=== PATIENT | female | born 1950 | race Caucasian/White ===

== ENCOUNTER → 2016-11-15 | Outpatient (CLI) | payer MEDICARE, BC ==
--- NOTE | 2016-11-15 11:51 | RADRPT ---
PROCEDURE: XR Right hip and pelvis. CLINICAL INDICATION: Right hip pain and pelvic pain. TECHNIQUE: 3 views. Frontal pelvis. Frontal and lateral right hip. COMPARISON: None. FINDINGS: There is no fracture or dislocation. The soft tissues are normal. There are degenerative changes of the right hip with joint space narrowing, osteophytes, subarticula r sclerosis, and deformity. There are subarticular cysts. The left hip is unremarkable. There is no radiopaque foreign body. IMPRESSION: 1. Severe degenerative changes of the right hip. 2. Unremarkable left hip. RPTAT: QQ .Hi Caba MD, MD Date Time Electronically viewed and signed by .Hi Caba MD, on 11/15/2016 11:51 .R/
== END | disposition home or self-care (01) ==
LOC: HKI 10:41
PROVIDERS: ATTEND Orthopaedic Surgery
DX: M16.11 Unilateral primary osteoarthritis, right hip (principal); M25.551 Pain in right hip
CPT/HCPCS: 73502; G0463

== ENCOUNTER → 2017-05-04 | Outpatient (CLI) | payer MEDICARE, BC | END | disposition home or self-care (01) | LOC: HKI 09:07 | PROVIDERS: ATTEND Orthopaedic Surgery | DX: M25.551 Pain in right hip (principal); M16.11 Unilateral primary osteoarthritis, right hip | CPT/HCPCS: G0463 ==

== ENCOUNTER 2017-05-10 05:19 | Inpatient (IN) | payer MEDICARE, BC ==
[~2017-05-10] VITALS: Ht 152.4 cm; Wt 56.3 kg
[2017-05-10] VITALS (38 sets, daily range): BP systolic 107–145; BP diastolic 55–84; PULSE 66–104; RESP 16–18; Ht 152.4 cm; Wt 56.3 kg
[2017-05-10] MEDS ORDERED: LACTATED RINGER'S 1,000 ML IV SCH (06:00)
[2017-05-10] MEDS ORDERED: oxyCODONE (CR) 10 MG TAB [oxyCONTIN] X1 DOSE PO SCH ×2 (06:00→06:14)
[2017-05-10] MEDS ORDERED: PREGABALIN 300 MG PO X1 PO SCH ×2 (06:00→06:14)
[2017-05-10] MEDS ORDERED: traMADOL 50 MG TAB X 1 DOSE PO SCH ×2 (06:01→06:15)
[2017-05-10] MEDS ORDERED: CELECOXIB 400 MG PO X1 DOSE PO SCH ×2 (06:01→06:14)
[2017-05-10] MEDS ORDERED: CEFAZOLIN 2GM/50 ML (PMX) 50 ML X1 BEFORE INCISION IVPB SCH ×2 (06:01→06:15)
[2017-05-10] MEDS ORDERED: ONDANSETRON 4 MG IV X 1 DOSE IV SCH ×2 (06:02→06:15)
[2017-05-10] MEDS ORDERED: POLYMYXIN B 500000 UNIT INJ ONE (06:55)
[2017-05-10] MEDS ORDERED: SODIUM CL BACTERIOSTATIC 30 ML INJ ONE (06:55)
[2017-05-10] MEDS ORDERED: VANCOMYCIN 1 GM INJ ONE (06:55)
[2017-05-10] MEDS ORDERED: EPHEDrine SULFATE 50 MG/5 ML SYG ONE (07:00)
[2017-05-10] MEDS ORDERED: TRANEXAMIC ACID 570 MG in SOD CHLORIDE 0.9% 94.3 ML IV SCH (07:00)
[2017-05-10] MEDS ORDERED: BUPIVACAINE LIPOSOME/PF 266 MG/20 ML VIAL INFIL SCH (07:00)
[2017-05-10] MEDS ORDERED: EXPAREL NOTE (BUPIVICAINE LIPOSOMAL) XX SCH (07:00)
[2017-05-10] MEDS ORDERED: PAIN COCKTAIL-CEFUROXIME IRR SCH ×7 (07:00)
[2017-05-10] MEDS ORDERED: CEFAZOLIN 1 GM INJ ONE (07:12)
[2017-05-10] MEDS ORDERED: PROPOFOL 20 ML ONE (07:12)
[2017-05-10] MEDS ORDERED: NEOSTIGMINE 3 MG/3 ML SYRINGE ONE (07:12)
[2017-05-10] MEDS ORDERED: GLYCOPYRROLATE 0.4 MG INJ ONE (07:12)
[2017-05-10] MEDS ORDERED: ROCURONIUM 50 MG INJ ONE (07:12)
[2017-05-10] MEDS ORDERED: FENTAnyl 50 MCG/ML VIAL ONE ×2 (07:13→10:28)
[2017-05-10] MEDS ORDERED: DEXAMETHASONE 4 MG/ML 1 ML INJ ONE (07:13)
[2017-05-10] MEDS ORDERED: MIDAZOLAM 1 MG/ML 2 ML INJ ONE (07:13)
[2017-05-10] MEDS ORDERED: ONDANSETRON 4 MG INJ ONE (07:13)
--- NOTE | 2017-05-10 07:13 | HPN ---
Date/Time of Note Date/Time of Note DATE: 05/10/17 TIME: 07:13 Interval H&P Admission Note Pt. seen H&P reviewed: No system changes No changes from H&P on 04/25/17 by GARY Jones MD May 10, 2017 07:13
[2017-05-10] MEDS: TRANEXAMIC ACID 570 MG in SOD CHLORIDE 0.9% 100 ML IVPB SCH ×2 (07:14→09:02)
[2017-05-10] MEDS ORDERED: PROPOFOL 100 ML ONE (08:21)
[2017-05-10] MEDS ORDERED: ETOMIDATE 20 MG INJ ONE (08:21)
[2017-05-10] MEDS ORDERED: BACITRACIN 50000 UNITS INJ IRR ONE (08:37)
[2017-05-10] MEDS: LACTATED RINGER'S 1,000 ML IV SCH ×2 (09:37→16:43)
--- NOTE | 2017-05-10 09:42 | PN ---
Date/Time of Note Date/Time of Note DATE: 05/10/17 TIME: 09:41 Assessment/Plan Lines/Catheters IV Catheter Type (from Nrsg): Peripheral IV Assessment/Plan Assessment/Plan Stable in PACU, s/p right anterior HIRAM -continue Ancef -pain meds as needed -ASA/SCDs -OOB with PT -check AM labs -monitor drain -d/c pedersen in AM XR of the right hip is pending at this time Subjective 24 Hr Interval Summary Stable in PACU. Denies pain. Moving all extremities. Exam/Review of Systems Vital Signs Vitals Vital Signs Date Time Temp Pulse Resp B/P Pulse Ox O2 Delivery O2 Flow Rate FiO2 05/10/17 05:45 98.0 68 18 140/71 98 Room Air Exam Free Text/Dictation Hemovac: minimal Dressing dry Incision clean, dry, and intact without redness or drainage 5/5 Quadriceps, Tibialis Anterior, EHL, Gastroc, Soleus, Peroneals Normal sensation Palpable DT/PT, CR <2 sec No distal edema LUCAS EDUARDO PA-C May 10, 2017 09:42
--- NOTE | 2017-05-10 09:50 | OPR ---
Date/Time of Note Date/Time of Note DATE: 05/10/17 TIME: 09:47 Operative Report Procedure Description DATE: 05/10/2017 PREOPERATIVE DIAGNOSIS: Right hip osteoarthritis POSTOPERATIVE DIAGNOSIS: Right hip osteoarthritis OPERATION PERFORMED: Right anterior total hip arthroplasty SURGEON: Gary Sparks MD MILL CONTROL OPERATOR: Jose Carey PA-C COMPONENTS USED: DePuy size 48 mm Gription [place] cup, 48/32 neutral Altrex polyethylene liner, size 4 standard Actis stem, 32+1 ceramic head ANESTHESIA: Spinal plus general endotracheal intubation. ANESTHESIOLOGIST: Romel Gross M.D. ESTIMATED BLOOD LOSS: 300 cc INTRAVENOUS FLUIDS: Crystalloid 2 L. SPECIMENS: Femoral head. DRAINS: Hemovac 1 COMPLICATIONS: None. DISPOSITION: The patient tolerated the procedure well and was taken to the recovery room in stable condition. INDICATIONS: The patient is a 67-year-old woman who has developed progressively worsening pain in the right hip with radiographic evidence of severe osteoarthritis. She has failed nonsurgical means of treatment to address her pain including activity modifications, pain medications, and ambulatory assist devices. Despite these measures she has had worsening pain I felt the patient would benefit from a total hip arthroplasty through an anterior approach. The risks, benefits, and alternatives of the procedure were explained in detail to the patient. I explained the risks of the surgery to include, but not be limited to: bleeding and possible need for blood transfusion; infection; pain; stiffness; neurovascular injury with possible numbness, weakness, and/or paralysis anywhere from the hip down to the toes; fracture; instability; dislocation; leg length inequality; wear and/or loosening of the prosthesis and possible need for future revision; blood clots; pulmonary embolism; and anesthetic complications such as heart attack, stroke, GI bleed, pneumonia, and/ or . Ample time was allowed for the patient to ask questions, all of which were addressed and answered. The patient understood the risks involved and wished to proceed. Informed consent was signed prior to the procedure. PROCEDURE: The patient's right hip was initialed with a marking pen in the preoperative area to identify the correct operative site. The patient was brought to the operating room and transferred [facility] the [facility] where a spinal anesthetic was administered. The patient was then anesthetized and intubated. A Sadler catheter was placed. Both feet were placed into well padded boots which were then placed into the leg holders of the traction booms. A timeout was performed to confirm that the right side was the correct operative site. The patient was given 2 g of intravenous Ancef within one hour prior to the procedure. The operative hip was prepped and draped in the usual sterile fashion. A 10 cm oblique incision was made over the anterior aspect of the hip and carried down through subcutaneous tissue and fat with sharp dissection. The tensor fascia manisha was incised along the length of the wound. The tensor fascia muscle was retracted laterally and the sartorius medially. The anterior circumflex vessels were identified and tied off with 2-0 silk suture and coagulated with the Tissue Link airport traffic controller. The rectus femoris was elevated off the anterior capsule and an anterior capsulectomy performed. A femoral neck osteotomy was made and the head removed from the acetabulum. The acetabulum was denuded of cartilage circumferentially, as was the femoral head. Retractors were placed around the acetabulum. The remnants of the labrum and ligamentum teres were excised. I reamed the acetabulum to the medial wall and then went into an anatomic position and increased the reamer size in 2 mm increments until I got a good bite and was down to bleeding subchondral bone. The [place] cup was opened and impacted into the acetabulum and sat flush circumferentially, getting a good bite. C-arm imaging showed it had about 40 to 45 degrees of abduction and 20 degrees of anteversion. The real liner was opened and impacted into the acetabulum and sat flush circumferentially. Attention was turned towards the femur. The operative leg was carefully lowered to the floor with the leg adducted. The foot was then externally rotated to approximately 110 degrees. A posteromedial release was performed to optimize exposure. The femoral hook was placed underneath the proximal femur and the hydraulic lift was then used to elevate the femur up out of the wound. The cookie cutter osteotome was used to remove the remaining overhanging greater trochanter. The femur was then broached, going up in one size increments until it sat flush with the neck cut and a stable fit was achieved. The trial neck and head were assembled and reduced into the acetabulum. Fluoroscopic imaging showed the components to be in good position and the leg lengths and offsets to be equal. At this point, the trial was dislocated and the trial broach removed. The canal was irrigated and dried. The real stem was opened and impacted into the femur. The trunnion was irrigated and dried, and the real femoral head was impacted onto the trunnion, and reduced into the acetabulum. The soft tissues were infiltrated with a mixture of 150 mg of 0.5% Bupivacaine, 8 mg of Duramorph, 300 mcg of epinephrine, 30 mg of Toradol, 100 mcg of clonidine, 750 mg of cefuroxime and 86 mL of normal saline, followed by an injection of 266 mg of liposomal Bupivacaine. At this point the hip was irrigated with a mixture of betadine/saline and then antibiotic saline with pulsatile lavage. A Hemovac drain was placed in the deep portion of the wound and brought out the anterolateral thigh. There was good hemostasis. The tensor fascia manisha was repaired with a running #1 Vicryl. The deep fat layer was irrigated and closed with 2-0 Stratafix and the subcutaneous layer closed with 3 -0 Vicryl and the skin was closed with kemal and then sealed with Dermabond. The drain was secured with 3-0 nylon. The sponge and needle counts were correct at the end of the case. The wound was covered with an occlusive dressing. The patient was awakened, extubated, and taken to the recovery room in stable condition. GARY SPARKS MD May 10, 2017 09:50
[2017-05-10] MEDS ORDERED: HYDROmorphONE 1 MG/ML SYG IV PRN (10:00)
[2017-05-10] MEDS ORDERED: NA PHOSPHATE/BIPHOS 133 ML ENEMA PR PRN (10:00)
[2017-05-10] MEDS ORDERED: BISACODYL 10 MG SUPP PR PRN (10:00)
[2017-05-10] MEDS ORDERED: NACL 0.9% 3 ML SYG IV SCH (10:00)
[2017-05-10] MEDS ORDERED: MAGNESIUM HYDROXIDE 30ML CUP PO PRN (10:00)
[2017-05-10] MEDS ORDERED: ASPIRIN (EC) 325 MG TAB PO ONE (10:00)
[2017-05-10] MEDS ORDERED: DIPHENHYDRAMINE 25 MG CAP PO PRN (10:00)
[2017-05-10] MEDS: CEFAZOLIN 2 GM/50 ML (PMX) 50 ML IVPB SCH ×2 (10:09→18:46)
[2017-05-10 10:30] LABS: HEMATOCRIT 34.7 % (37.0-47.0); HEMOGLOBIN 11.3 g/dl (12.0-16.0)
[2017-05-10 10:48] LABS: CALCIUM 8.8 mg/dl (8.4-10.2); CREATININE 0.58 mg/dl (0.44-1.00)
[2017-05-10] MEDS ORDERED: FENTAnyl 50 MCG/ML VIAL IV PRN ×4 (11:00→11:30)
--- NOTE | 2017-05-10 11:05 | RADRPT ---
PROCEDURE: X-ray fluoroscopy guidance CLINICAL INDICATION: RT HIP REPL. RM 7 O.R. TECHNIQUE: Fluoroscopic guidance was utilized for intraoperative procedure. COMPARISON: None. FINDINGS: Fluoroscopic guidance was utilized for intraoperative procedure. 0.5 minutes of fluoroscopy time wa s utilized for the procedure. 16 x-ray images were obtained during the procedure. There has been interval placement of a total right hip prosthesis in near anatomic alignment without evidence of hardware loosening. IMPRESSION: X-ray fluoroscopic guidance utilized for intraoperative procedure. Total right hip prosthesis in near anatomic alignment. Please see procedure note details. RPTAT: EE Physician Liborio Date Time Electronically viewed and signed by Physician Liborio on 05/10/2017 10:21 /
--- NOTE | 2017-05-10 11:06 | RADRPT ---
PROCEDURE: Pelvis x-ray CLINICAL INDICATION: Pain TECHNIQUE: Single AP view of the pelvis performed. COMPARISON: Plain radiographs of the pelvis and right hip from 11/15/2016 FINDINGS: There is decreased osseous mineralization. No fracture or osseous lesion identified. There has been interval placement of a total right hip prosthesis in near anatomic alignment without evidence of hardware loosening. Likely postoperative changes are noted including surrounding an intra-articular emphysema and a surg ical drain. There is stable mild narrowing of the left hip joint. RPTAT: AA IMPRESSION: Interval placement of a total right hip prosthesis in near anatomic alignment with likely postoperat rishi changes. Decreased osseous mineralization. Physician Liborio Date Time Electronically viewed and signed by Physician Liborio on 05/10/2017 10:32 /
[2017-05-10] MEDS: HYDROmorphONE (0.2 MG/ML) 10ML SYG IV PRN ×4 (11:15→12:02)
[2017-05-10] MEDS ORDERED: EPHEDrine SULFATE 50 MG/5 ML SYG IV PRN (11:30)
[2017-05-10] MEDS ORDERED: MEPERIDINE 25 MG INJ IV PRN (11:30)
[2017-05-10] MEDS ORDERED: ONDANSETRON 4 MG INJ IV PRN (11:30)
[2017-05-10] MEDS ORDERED: TRIMETHOBENZAMIDE 100 MG/ML VIAL IM PRN (11:30)
[2017-05-10] MEDS ORDERED: ALPRAZOLAM 0.25 MG TAB PO PRN ×2 (11:30)
[2017-05-10] MEDS ORDERED: ALBUTEROL 0.083% (NEB) 2.5 MG/3 ML AMP HHN PRN (11:30)
[2017-05-10] MEDS ORDERED: LABETALOL HCL 20MG INJ IV PRN (11:30)
[2017-05-10] MEDS ORDERED: hydrALAzine 20 MG INJ IV PRN (11:30)
[2017-05-10] MEDS ORDERED: HYDROmorphONE (0.2 MG/ML) 10ML SYG IV PRN ×3 (11:30)
[2017-05-10] MEDS ORDERED: DIPHENHYDRAMINE 50 MG INJ IV PRN (11:30)
[2017-05-10] MEDS ORDERED: MIDAZOLAM 1 MG/ML 2 ML INJ IV PRN (11:30)
[2017-05-10] MEDS ORDERED: IPRATROPIUM (NEB) 0.5 MG/2.5 ML AMP HHN PRN (11:30)
[2017-05-10] MEDS ORDERED: OXYCODONE/ACETAMINOPHEN (5/325) TAB PO PRN ×2 (11:30)
[2017-05-10] MEDS: traMADol 50 MG TAB PO SCH ×2 (12:00→17:41)
[2017-05-10] MEDS ORDERED: SOD CHLORIDE 0.9% IVPB ONE ×2 (13:00→16:00)
[2017-05-10] MEDS ORDERED: TRANEXAMIC ACID IVPB ONE ×2 (13:00→16:00)
--- NOTE | 2017-05-10 13:11 | CONS ---
DATE OF ADMISSION: 05/10/2017 DATE OF CONSULTATION: 05/10/2017 REFERRING PHYSICIAN: Dr. Barrow. Thank you very much for allowing me to evaluate the above patient, a 67-year-old female, who just underwent right anterior hip arthroplasty. HISTORICAL EVENTS: As you well know, this patient has had progressive disabling pain involving her right hip and elected to proceed with surgical intervention. Postoperatively in recovery, she denies cough, wheezing, shortness of breath, nausea, vomiting, abdominal or chest pain. PAST MEDICAL HISTORY: Includes depression, osteoporosis, history of constipation, and anxiety. MEDICATION: Omeprazole 20 mg per day, Xanax 0.25 each day p.r.n., Lexapro 10 per day, ibuprofen 800 mg b.i.d. SOCIAL HISTORY: She does not smoke. Owns a hair salon. Rarely drinks alcohol. FAMILY HISTORY: Positive for coronary disease. ALLERGIES: INCLUDE FOSAMAX. PHYSICAL EXAMINATION: GENERAL APPEARANCE: Deputy female in no acute distress. VITAL SIGNS: BP 122/80, pulse 80, respirations were 20. She was afebrile. HEENT: Eyes: Extraocular muscles were full. Nose, mouth, and throat were normal. NECK: Supple. There was no jugular venous distention, thyroid enlargement, or adenopathy. Carotids 2+. LUNGS: Lungs were clear. HEART: Rhythm is regular. No murmur. No 3rd or 4th sound. ABDOMEN: Nontender. Liver and spleen were not palpable. No mass or tenderness were noted. EXTREMITIES: No edema. No calf tenderness. NEUROLOGIC: No lateralizing motor weakness. IMPRESSION: 1. Stable postop right hip. 2. History of anxiety. Will resume Lexapro and Xanax. 3. Will evaluate daily for signs and symptoms of thromboembolic disease despite appropriate DVT prophylaxis. The past medical history indicate no history of diabetes, coronary disease, stroke or phlebitis. Dictated By: Roni Walden MD /jadon/[email or web address] /Document#: [id number]
--- NOTE | 2017-05-10 14:54 | PDOCDIS ---
Discharge Instructions DIAGNOSIS Discharge Diagnosis s/p right anterior HIRAM CONDITION Patient Condition: Good HOME CARE INSTRUCTIONS: Diet Instructions: Regular ACTIVITY: Activity Restrictions: Slowly Increase Activity Rest between Activity Avoid heavy lifting Do not operate Machinery Do not operate Power Tool Avoid Heavy Housework Keep Limb Elevated Weight Bearing FOLLOW UP/APPOINTMENTS Follow-up Plan follow up in the office on 05/21/17 LUCAS EDUARDO PA-C May 10, 2017 14:54
[2017-05-10] MEDS ORDERED: HYDR-3498 PO (14:56)
[2017-05-10] MEDS ORDERED: PANT40TA4 PO (14:56)
[2017-05-10] MEDS ORDERED: ASPI325T32 PO (14:56)
[2017-05-10] MEDS ORDERED: TRAM50TA2 PO (14:56)
[2017-05-10] MEDS ORDERED: BACITRACIN 50000 UNITS INJ ONE (15:18)
[2017-05-10] MEDS: PANTOPRAZOLE (EC) 40 MG TAB PO SCH (17:41)
[2017-05-10] MEDS: ESCITALOPRAM 10 MG TAB PO SCH (18:56)
[2017-05-10] MEDS: DOCUSATE SODIUM 100 MG CAP PO SCH (21:00)
[2017-05-11] MEDS: HYDROCODONE/APAP (5/325) TAB PO PRN ×2 (00:30→12:09)
[2017-05-11] MEDS: LACTATED RINGER'S 1,000 ML IV SCH ×3 (03:18→15:13)
[2017-05-11] MEDS: CEFAZOLIN 2 GM/50 ML (PMX) 50 ML IVPB SCH (03:18)
[2017-05-11 05:11] LABS: HEMATOCRIT 26.7 % (37.0-47.0); HEMOGLOBIN 8.9 g/dl (12.0-16.0)
[2017-05-11 05:36] LABS: CREATININE 0.52 mg/dl (0.44-1.00); POTASSIUM 4.2 mmol/L (3.5-5.1)
[2017-05-11] MEDS ORDERED: PANTOPRAZOLE (EC) 40 MG TAB PO SCH (06:00)
[2017-05-11] MEDS: traMADol 50 MG TAB PO SCH ×4 (06:00→17:33)
[2017-05-11] MEDS: PANTOPRAZOLE (EC) 40 MG TAB PO SCH ×2 (06:45→17:33)
[2017-05-11 07:45] VITALS: BP 109/54; RESP 18
[2017-05-11] MEDS: DOCUSATE SODIUM 100 MG CAP PO SCH ×2 (08:20→22:15)
[2017-05-11] MEDS: ASPIRIN (EC) 325 MG TAB PO SCH ×2 (08:21→22:15)
[2017-05-11] MEDS: ESCITALOPRAM 10 MG TAB PO SCH (08:21)
[2017-05-11] MEDS: POLYETHYLENE GLYCOL 17 GM PACKET PO SCH (08:21)
--- NOTE | 2017-05-11 09:01 | PN ---
Date/Time of Note Date/Time of Note DATE: 05/11/17 TIME: 08:59 Assessment/Plan Lines/Catheters IV Catheter Type (from Nrsg): Peripheral IV Sadler in Place (from Nrsg): Yes Assessment/Plan Assessment/Plan Stable, POD #1, s/p right anterior HIRAM -dc abx -pain meds as needed -ASA/SCDs -OOB with PT -drain removed -check AM plans -d/c planning for home Subjective 24 Hr Interval Summary No acute overnight events. Denies significant pain. Progressing well with PT. VSS, afebrile. H&H low but will monitor for now. Will plan to go home upon discharge. Exam/Review of Systems Vital Signs Vitals Vital Signs Date Time Temp Pulse Resp B/P Pulse Ox O2 Delivery O2 Flow Rate FiO2 05/11/17 14:20 98.2 80 18 117/55 90 05/10/17 20:45 Nasal Cannula 2.0 Intake and Output 05/10/17 05/10/17 05/11/17 15:00 23:00 07:00 Intake Total 2817.0 ml 1250 ml 2530 ml Output Total 1600 ml 590 ml 2100 ml Balance 1217.0 ml 660 ml 430 ml Exam Free Text/Dictation Hemovac: 140cc Dressing dry Incision clean, dry, and intact without redness or drainage 5/5 Quadriceps, Tibialis Anterior, EHL, Gastroc, Soleus, Peroneals Normal sensation Palpable DT/PT, CR <2 sec No distal edema Results Result Diagram: 05/11/17 0423 05/11/17 0423 LUCAS EDUARDO PA-C May 11, 2017 09:01
--- NOTE | 2017-05-11 09:05 | CONS ---
Date/Time of Note Date/Time of Note DATE: 05/11/17 TIME: 09:00 Assessment/Plan Assessment/Plan Chief Complaint/Hosp Course 1. She is 1 day postop a right total hip arthroplasty. She is doing well. She will continue current medication and physical therapy protocol. 2. Her hemoglobin and hematocrit are lower than yesterday. Will recheck tomorrow. Problems: Consultation Date/Type/Reason Admit Date/Time May 10, 2017 at 05:19 Initial Consult Date 24 HR Interval Summary Free Text/Dictation She is 1 day postop a right total hip replacement. She is feeling better. She is hungry and is starting to eat breakfast. Constitutional: improved, no complaints Exam/Review of Systems Vital Signs Vitals Vital Signs Date Time Temp Pulse Resp B/P Pulse Ox O2 Delivery O2 Flow Rate FiO2 05/11/17 07:45 98.0 91 18 109/54 100 05/10/17 20:45 Nasal Cannula 2.0 Intake and Output 05/10/17 05/10/17 05/11/17 15:00 23:00 07:00 Intake Total 2817.0 ml 1250 ml 2530 ml Output Total 1600 ml 590 ml 2100 ml Balance 1217.0 ml 660 ml 430 ml Exam Constitutional: alert, oriented, well developed Respiratory: clear to auscultation, normal air movement Cardiovascular: regular rate and rhythm Gastrointestinal: nl liver, spleen, non-tender, soft Musculoskeletal: nl extremities to inspection Results Result Diagram: 05/11/17 0423 05/11/17 0423 Results 24 hrs Laboratory Tests Test 05/10/17 10:02 05/11/17 04:23 Hemoglobin 11.3 L 8.9 #L Hematocrit 34.7 L 26.7 #L Sodium Level 141 137 Potassium Level 4.0 4.2 Chloride Level 108 98 # Carbon Dioxide Level 25 29 Anion Gap 12 14 Blood Urea Nitrogen 9 6 L Creatinine 0.58 0.52 Glucose Level 158 101 # Calcium Level 8.8 8.0 L Medications Medications Current Medications Miscellaneous Information 1 ea 1 ea NOTE XX ; Start 05/10/17 at 07:00; Stop at 07:01 Lactated Ringer's (Lr) 1,000 ml @ 125 mls/hr Q8H IV Last administered on t 03:18; Admin Dose 125 MLS/HR; Start 05/10/17 at 09:37 Tramadol HCl (Ultram) 50 mg Q6 PO Last administered on 05/10/17 17:41; Admin Dose 50 MG; Start 05/10/17 at 12:00; Stop 05/13/17 at 11:59 Acetaminophen/ Hydrocodone Bitart ([place] (5/325)) 1 tab Q4H PRN PO PAIN LEVEL 1 -3; Start 05/10/17 at 10:00 Acetaminophen/ Hydrocodone Bitart ([place] (5/325)) 2 tab Q4H PRN PO PAIN LEVEL 4 -7 Last administered on 05/11/17 00:30; Admin Dose 2 TAB; Start 05/10/17 at 10: 00 Hydromorphone HCl (Dilaudid) 1 mg Q3H PRN IV PAIN LEVEL 8-10 Last administered on 05/11/17 06:42; Admin Dose 1 MG; Start 05/10/17 at 10:00 Ondansetron HCl (Zofran Inj) 4 mg Q6H PRN IV NAUSEA AND/OR VOMITING; Start at 10:00 Bisacodyl (Dulcolax Supp) 10 mg Q12H PRN DC CONSTIPATION; Start 05/10/17 at 10: 00 Magnesium Hydroxide (Milk Of Mag) 30 ml BID PRN PO CONSTIPATION; Start at 10:00 Sodium Biphosphate/ Sodium Phosphate (Fleet Enema) 133 ml DAILY PRN DC CONSTIPATION; Start 05/10/17 at 10:00 Docusate Sodium (Colace) 100 mg BID PO Last administered on 05/11/17 08:20; Admin Dose 100 MG; Start 05/10/17 at 21:00 Diphenhydramine HCl (Benadryl) 25 mg Q6H PRN PO PRURITUS; Start 05/10/17 at 10: 00 Aspirin (Ecotrin) 325 mg BID PO Last administered on 05/11/17 08:21; Admin Dose 325 MG; Start 05/11/17 at 09:00 Pantoprazole (Protonix Tab) 40 mg BID@18 PO Last administered on 05/11/17 06:45; Admin Dose 40 MG; Start 05/10/17 at 18:00 Polyethylene Glycol (Miralax) 17 gm DAILY PO Last administered on 05/11/17 08: 21; Admin Dose 17 GM; Start 05/11/17 at 09:00 Escitalopram Oxalate (Lexapro) 10 mg DAILY PO Last administered on 05/11/17 08 :21; Admin Dose 10 MG; Start 05/10/17 at 13:00 Alprazolam (Xanax) 0.25 mg HS PRN PO SLEEP; Start 05/10/17 at 11:30 Alprazolam (Xanax) 0.25 mg BID PRN PO ANXIETY; Start 05/10/17 at 11:30 BURT RODRIGUEZ MD May 11, 2017 09:05
[2017-05-11 09:24] LABS: ADD UMIC NO; UR ASCORBIC ACID NEGATIVE (NEGATIVE); UR BILIRUBIN (Dip) NEGATIVE (NEGATIVE); UR BLOOD (Dip) NEGATIVE (NEGATIVE); UR CLARITY CLEAR (CLEAR); UR COLOR STRAW (YELLOW); UR GLUCOSE (Dip) NEGATIVE (NEGATIVE); UR KETONES (Dip) NEGATIVE (NEGATIVE); UR LEUKOCYTE ESTERASE (Dip) NEGATIVE Leu/ul (NEGATIVE); UR NITRITE (Dip) NEGATIVE (NEGATIVE); UR TOTAL PROTEIN (Dip) NEGATIVE (NEGATIVE); UR UROBILINOGEN (Dip) NEGATIVE (NEGATIVE)
[2017-05-11] MEDS: ONDANSETRON 4 MG INJ IV PRN ×2 (12:09→17:31)
[2017-05-11 14:20] VITALS: BP 117/55; RESP 18
[2017-05-11 19:20] VITALS: BP 123/58; RESP 22
[2017-05-12] MEDS: traMADol 50 MG TAB PO SCH ×4 (01:19→17:38)
[2017-05-12] MEDS: LACTATED RINGER'S 1,000 ML IV SCH ×3 (01:37→16:33)
[2017-05-12 05:14] LABS: HEMATOCRIT 27.4 % (37.0-47.0)
[2017-05-12 05:45] LABS: CALCIUM 8.3 mg/dl (8.4-10.2); CREATININE 0.55 mg/dl (0.44-1.00); POTASSIUM 4.1 mmol/L (3.5-5.1)
[2017-05-12] MEDS: PANTOPRAZOLE (EC) 40 MG TAB PO SCH ×2 (06:00→17:37)
[2017-05-12 08:15] VITALS: BP 117/60; RESP 17
[2017-05-12] MEDS: ASPIRIN (EC) 325 MG TAB PO SCH ×2 (08:39→20:38)
[2017-05-12] MEDS: ESCITALOPRAM 10 MG TAB PO SCH (08:39)
[2017-05-12] MEDS: DOCUSATE SODIUM 100 MG CAP PO SCH ×2 (08:39→20:38)
[2017-05-12] MEDS: POLYETHYLENE GLYCOL 17 GM PACKET PO SCH (08:40)
--- NOTE | 2017-05-12 11:06 | PN ---
Date/Time of Note Date/Time of Note DATE: 05/12/17 TIME: 11:05 Assessment/Plan Lines/Catheters IV Catheter Type (from Nrsg): Saline Lock Sadler in Place (from Nrsg): No Assessment/Plan Assessment/Plan Stable, POD #2, s/p right anterior HIRAM -pain meds as needed -ASA/SCDs -OOB with PT -check AM labs -dressing changed -plan to d/c home tomorrow Subjective 24 Hr Interval Summary No acute overnight events. Having mild pain. Progressing with PT. VSS, afebrile. Will plan to go home tomorrow. Exam/Review of Systems Vital Signs Vitals Vital Signs Date Time Temp Pulse Resp B/P Pulse Ox O2 Delivery O2 Flow Rate FiO2 05/12/17 08:15 97.9 78 17 117/60 96 05/10/17 20:45 Nasal Cannula 2.0 Intake and Output 05/11/17 05/11/17 05/12/17 15:00 23:00 07:00 Intake Total 655.6 ml 960 ml 350 ml Output Total 1100 ml Balance 655.6 ml -140 ml 350 ml Exam Free Text/Dictation Dressing dry Incision clean, dry, and intact without redness or drainage 5/5 Quadriceps, Tibialis Anterior, EHL, Gastroc, Soleus, Peroneals Normal sensation Palpable DT/PT, CR <2 sec No distal edema Results Result Diagram: 05/12/17 0446 05/12/17 0446 LUCAS EDUARDO PA-C May 12, 2017 11:06
--- NOTE | 2017-05-12 13:14 | CONS ---
Date/Time of Note Date/Time of Note DATE: 05/12/17 TIME: 13:12 Assessment/Plan Assessment/Plan Chief Complaint/Hosp Course 1. She is 2 days postop a right total hip arthroplasty. She is doing well. She will continue current medication and physical therapy protocol. 2. Her hemoglobin and hematocrit are higher today. Problems: Consultation Date/Type/Reason Admit Date/Time May 10, 2017 at 05:19 24 HR Interval Summary Free Text/Dictation She is now 2 days postop a right total hip replacement. She is up walking with a walker. She is feeling much better today. Constitutional: improved, no complaints Exam/Review of Systems Vital Signs Vitals Vital Signs Date Time Temp Pulse Resp B/P Pulse Ox O2 Delivery O2 Flow Rate FiO2 05/12/17 08:15 97.9 78 17 117/60 96 05/10/17 20:45 Nasal Cannula 2.0 Intake and Output 05/11/17 05/11/17 05/12/17 15:00 23:00 07:00 Intake Total 655.6 ml 960 ml 350 ml Output Total 1100 ml Balance 655.6 ml -140 ml 350 ml Exam Constitutional: alert, oriented, well developed Respiratory: clear to auscultation, normal air movement Cardiovascular: regular rate and rhythm Musculoskeletal: nl extremities to inspection Results Result Diagram: 05/12/17 0446 05/12/17 0446 Results 24 hrs Laboratory Tests Test 05/12/17 04:46 Hemoglobin 9.0 L Hematocrit 27.4 L Sodium Level 129 L Potassium Level 4.1 Chloride Level 90 L Carbon Dioxide Level 28 Anion Gap 15 Blood Urea Nitrogen 6 L Creatinine 0.55 Glucose Level 94 Calcium Level 8.3 L Medications Medications Current Medications Miscellaneous Information 1 ea 1 ea NOTE XX ; Start 05/10/17 at 07:00; Stop at 07:01 Lactated Ringer's (Lr) 1,000 ml @ 125 mls/hr Q8H IV Last administered on 03:18; Admin Dose 125 MLS/HR; Start 05/10/17 at 09:37 Tramadol HCl (Ultram) 50 mg Q6 PO Last administered on 05/12/17 09:24; Admin Dose 50 MG; Start 05/10/17 at 12:00; Stop 05/13/17 at 11:59 Acetaminophen/ Hydrocodone Bitart ([place] (5/325)) 1 tab Q4H PRN PO PAIN LEVEL 1 -3; Start 05/10/17 at 10:00 Acetaminophen/ Hydrocodone Bitart ([place] (5/325)) 2 tab Q4H PRN PO PAIN LEVEL 4 -7 Last administered on 05/11/17 12:09; Admin Dose 2 TAB; Start 05/10/17 at 10: 00 Hydromorphone HCl (Dilaudid) 1 mg Q3H PRN IV PAIN LEVEL 8-10 Last administered on 05/11/17 06:42; Admin Dose 1 MG; Start 05/10/17 at 10:00 Ondansetron HCl (Zofran Inj) 4 mg Q6H PRN IV NAUSEA AND/OR VOMITING Last administered on 05/11/17 17:31; Admin Dose 4 MG; Start 05/10/17 at 10:00 Bisacodyl (Dulcolax Supp) 10 mg Q12H PRN [place] CONSTIPATION; Start 05/10/17 at 10: 00 Magnesium Hydroxide (Milk Of Mag) 30 ml BID PRN PO CONSTIPATION; Start at 10:00 Sodium Biphosphate/ Sodium Phosphate (Fleet Enema) 133 ml DAILY PRN NE CONSTIPATION; Start 05/10/17 at 10:00 Docusate Sodium (Colace) 100 mg BID PO Last administered on 05/12/17 08:39; Admin Dose 100 MG; Start 05/10/17 at 21:00 Diphenhydramine HCl (Benadryl) 25 mg Q6H PRN PO PRURITUS; Start 05/10/17 at 10: 00 Aspirin (Ecotrin) 325 mg BID PO Last administered on 05/12/17 08:39; Admin Dose 325 MG; Start 05/11/17 at 09:00 Pantoprazole (Protonix Tab) 40 mg BID@ PO Last administered on 05/11/17 17:33; Admin Dose 40 MG; Start 05/10/17 at 18:00 Polyethylene Glycol (Miralax) 17 gm DAILY PO Last administered on 05/11/17 08: 21; Admin Dose 17 GM; Start 05/11/17 at 09:00 Escitalopram Oxalate (Lexapro) 10 mg DAILY PO Last administered on 05/12/17 08 :39; Admin Dose 10 MG; Start 05/10/17 at 13:00 Alprazolam (Xanax) 0.25 mg HS PRN PO SLEEP; Start 05/10/17 at 11:30 Alprazolam (Xanax) 0.25 mg BID PRN PO ANXIETY; Start 05/10/17 at 11:30 BURT RODRIGUEZ MD May 12, 2017 13:14
[2017-05-12 14:00] VITALS: BP 106/66; RESP 18
[2017-05-12] MEDS: HYDROCODONE/APAP (5/325) TAB PO PRN ×2 (14:27→19:29)
[2017-05-12 19:45] VITALS: BP 104/56; RESP 18
[2017-05-13] MEDS: LACTATED RINGER'S 1,000 ML IV SCH ×2 (01:37→13:22)
[2017-05-13 02:13] VITALS: BP 114/63; RESP 18
[2017-05-13] MEDS: traMADol 50 MG TAB PO SCH ×2 (05:43)
[2017-05-13] MEDS: PANTOPRAZOLE (EC) 40 MG TAB PO SCH (05:43)
[2017-05-13 07:05] LABS: HEMATOCRIT 28.1 % (37.0-47.0); HEMOGLOBIN 9.1 g/dl (12.0-16.0)
[2017-05-13 07:38] LABS: CALCIUM 8.5 mg/dl (8.4-10.2); CREATININE 0.57 mg/dl (0.44-1.00)
[2017-05-13 08:38] VITALS: BP 118/64; RESP 18
[2017-05-13] MEDS: ESCITALOPRAM 10 MG TAB PO SCH (09:04)
[2017-05-13] MEDS: POLYETHYLENE GLYCOL 17 GM PACKET PO SCH (09:04)
[2017-05-13] MEDS: DOCUSATE SODIUM 100 MG CAP PO SCH (09:04)
[2017-05-13] MEDS: ASPIRIN (EC) 325 MG TAB PO SCH (09:04)
--- NOTE | 2017-05-13 12:38 | CONS ---
Date/Time of Note Date/Time of Note DATE: 05/13/17 TIME: 12:34 Assessment/Plan Assessment/Plan Chief Complaint/Hosp Course 1. She is 3 days postop a right total hip arthroplasty. She is doing well. She will continue current medication and physical therapy protocol. She can be discharged today . 2. Her hemoglobin and hematocrit are higher today. Problems: Consultation Date/Type/Reason Admit Date/Time May 10, 2017 at 05:19 24 HR Interval Summary Free Text/Dictation She is doing well . No complaints . Constitutional: improved, no complaints Exam/Review of Systems Vital Signs Vitals Vital Signs Date Time Temp Pulse Resp B/P Pulse Ox O2 Delivery O2 Flow Rate FiO2 05/13/17 08:38 97.9 76 18 118/64 98 05/10/17 20:45 Nasal Cannula 2.0 Intake and Output 05/12/17 05/12/17 05/13/17 15:00 23:00 07:00 Intake Total 1200 ml 1900 ml Balance 1200 ml 1900 ml Exam Constitutional: alert, oriented, well developed Respiratory: clear to auscultation, normal air movement Cardiovascular: nl pulses, regular rate and rhythm Gastrointestinal: soft Musculoskeletal: nl extremities to inspection Results Result Diagram: 05/13/17 0458 05/13/17 0458 Results 24 hrs Laboratory Tests Test 05/13/17 04:58 Hemoglobin 9.1 L Hematocrit 28.1 L Sodium Level 136 Potassium Level 4.0 Chloride Level 101 # Carbon Dioxide Level 28 Anion Gap 11 Blood Urea Nitrogen 6 L Creatinine 0.57 Glucose Level 77 Calcium Level 8.5 Medications Medications Current Medications Lactated Ringer's (Lr) 1,000 ml @ 125 mls/hr Q8H IV Last administered on 03:18; Admin Dose 125 MLS/HR; Start 05/10/17 at 09:37 Acetaminophen/ Hydrocodone Bitart ([place] (5/325)) 1 tab Q4H PRN PO PAIN LEVEL 1 -3 Last administered on 05/12/17 19:29; Admin Dose 1 TAB; Start 05/10/17 at 10: 00 Acetaminophen/ Hydrocodone Bitart ([place] (5/325)) 2 tab Q4H PRN PO PAIN LEVEL 4 -7 Last administered on 05/11/17 12:09; Admin Dose 2 TAB; Start 05/10/17 at 10: 00 Hydromorphone HCl (Dilaudid) 1 mg Q3H PRN IV PAIN LEVEL 8-10 Last administered on 05/11/17 06:42; Admin Dose 1 MG; Start 05/10/17 at 10:00 Ondansetron HCl (Zofran Inj) 4 mg Q6H PRN IV NAUSEA AND/OR VOMITING Last administered on 05/11/17 17:31; Admin Dose 4 MG; Start 05/10/17 at 10:00 Bisacodyl (Dulcolax Supp) 10 mg Q12H PRN OR CONSTIPATION; Start 05/10/17 at 10: 00 Magnesium Hydroxide (Milk Of Mag) 30 ml BID PRN PO CONSTIPATION; Start at 10:00 Sodium Biphosphate/ Sodium Phosphate (Fleet Enema) 133 ml DAILY PRN OR CONSTIPATION Last administered on 05/13/17 05:47; Admin Dose 133 ML; Start at 10:00 Docusate Sodium (Colace) 100 mg BID PO Last administered on 05/13/17 09:04; Admin Dose 100 MG; Start 05/10/17 at 21:00 Diphenhydramine HCl (Benadryl) 25 mg Q6H PRN PO PRURITUS; Start 05/10/17 at 10: 00 Aspirin (Ecotrin) 325 mg BID PO Last administered on 05/13/17 09:04; Admin Dose 325 MG; Start 05/11/17 at 09:00 Pantoprazole (Protonix Tab) 40 mg BID@,18 PO Last administered on 05/13/17 05:43; Admin Dose 40 MG; Start 05/10/17 at 18:00 Polyethylene Glycol (Miralax) 17 gm DAILY PO Last administered on 05/13/17 09: 04; Admin Dose 17 GM; Start 05/11/17 at 09:00 Escitalopram Oxalate (Lexapro) 10 mg DAILY PO Last administered on 05/13/17 09 :04; Admin Dose 10 MG; Start 05/10/17 at 13:00 Alprazolam (Xanax) 0.25 mg HS PRN PO SLEEP; Start 05/10/17 at 11:30 Alprazolam (Xanax) 0.25 mg BID PRN PO ANXIETY; Start 05/10/17 at 11:30 BURT RODRIGUEZ MD May 13, 2017 12:38
[2017-05-13] MEDS: HYDROCODONE/APAP (5/325) TAB PO PRN (13:21)
--- NOTE | 2017-05-13 15:19 | PN ---
Date/Time of Note Date/Time of Note DATE: 05/13/17 TIME: 15:18 Assessment/Plan Lines/Catheters IV Catheter Type (from Nrsg): Saline Lock Sadler in Place (from Nrsg): No Assessment/Plan Assessment/Plan POD # 3. Stable. -D/C to home -Pain meds -Home PT -ASA/SCDs -F/u with me in 1 week Subjective 24 Hr Interval Summary Eager to go home. Minimal pain. Exam/Review of Systems Vital Signs Vitals Vital Signs Date Time Temp Pulse Resp B/P Pulse Ox O2 Delivery O2 Flow Rate FiO2 05/13/17 08:38 97.9 76 18 118/64 98 05/10/17 20:45 Nasal Cannula 2.0 Intake and Output 05/12/17 05/12/17 05/13/17 15:00 23:00 07:00 Intake Total 1200 ml 1900 ml Balance 1200 ml 1900 ml Exam Free Text/Dictation Dressing dry Incision clean, dry, and intact without redness or drainage Thigh soft 5/5 Quadriceps, Tibialis Anterior, EHL, Gastroc Soleus, Peroneals Normal sensation Palpable DP/PT, CR < 2 Sec No distal edema Results Result Diagram: 05/13/17 0458 05/13/17 0458 GARY SPARKS MD May 13, 2017 15:19
--- NOTE | 2017-05-14 08:11 | DS ---
Date/Time of Note Date/Time of Note DATE: 05/14/17 TIME: 08:08 Discharge Summary Admission/Discharge Info Admit Date/Time May 10, 2017 at 05:19 Discharge Date/Time May 13, 2017 at 16:10 Discharge Diagnosis s/p right anterior HIRAM Patient Condition: Good Procedures Right anterior total hip arthroplasty Hospital Course This is a 59-year-old female, who was seen in the clinic initially complaining of right hip pain. X-rays demonstrated advanced osteoarthritis of the right hip , and was thought she would benefit from right anterior total hip arthroplasty. On 05/10/2017, the patient was admitted and taken to the operating room, where she underwent a right anterior total hip arthroplasty. There were no intraoperative complications. The patient tolerated procedure well. She was taken to recovery room in stable condition. Pain was well-controlled oral pain medication. She was started on aspirin and SCDs for DVT prophylaxis. She remained hemodynamically stable and neurovascularly intact throughout her hospital stay. She began physical therapy on postoperative day 0, continue to make a progress. Ultimately she was deemed able to discharge home on postoperative day 3. Prior to discharge, the incision was inspected and noted to be clean, dry, and intact. Dressing changes were done prior to patient going home. Discharge Instructions: The patient will be discharged home in stable condition. She is to resume a normal diet. She is weightbearing as tolerated on the right lower extremity. She will begin physical therapy with home health. She will be discharged home on the medication noted and is to resume all of her normal home medication. The patient is to call the office or go to emergency room for any concerns including increased redness, swelling, drainage , fever, or any concerns regarding the operation or site of incision. Home Meds Active Scripts Pantoprazole* (Pantoprazole*) 40 Mg Tablet., 40 MG PO BID@06,18 for 40 Days, # 40 Prov:LUCAS EDUARDO PA-C 05/10/17 Tramadol HCl (Tramadol HCl) 50 Mg Tablet, 50 MG PO Q6 for 30 Days, #60 TAB Prov:LUCAS EDUARDO PA-C 05/10/17 Hydrocodone Bit-Acetaminophen (Hydrocodone Bit-APAP) 5-325MG Tablet, 1 TAB PO Q4H Y for PAIN LEVEL 1-3 for 30 Days, #60 TAB Prov:LUCAS EDUARDO PA-C 05/10/17 Aspirin (Aspir-Rachel) 325 Mg Tablet., 325 MG PO BID for 40 Days, #80 Prov:LUCAS EDUARDO PA-C 05/10/17 Follow-up Plan Follow-up in the office on 05/23/2017 Primary Care Provider Not On Staff Doctor LUCAS EDUARDO PA-C May 14, 2017 08:11
== END 2017-05-13 16:10 | disposition home health service (06) | DRG 470 ==
LOC: REC 05:19 → MS1 13:09
PROVIDERS: ADMIT Orthopaedic Surgery; ATTEND Orthopaedic Surgery
PROC: 0SR904A Replacement of Right Hip Joint with Ceramic on Polyethylene Synthetic Substitute, Uncemented, Open Approach (ICD-10-PCS; principal; 2017-05-10 07:00)
DX: M16.11 Unilateral primary osteoarthritis, right hip (principal); F32.9 Major depressive disorder, single episode, unspecified; F41.9 Anxiety disorder, unspecified; K59.00 Constipation, unspecified; M81.0 Age-related osteoporosis without current pathological fracture
CPT/HCPCS: 72170; 73530; 80048; 81003; 85014; 85018; 86850; 86900; 86901; 86920; 87081; 87086; 88304; 88311; 97110; 97116; 97162; 97166; 97530; 97535; C1776; C9290; J0171; J0690; J0697; J0735; J1100; J1170; J1885; J2250; J2274; J2405; J2710; J3010; J3370; J7120

== ENCOUNTER → 2017-05-21 | Outpatient (CLI) | payer MEDICARE, BC ==
[~2017-05-21] MED LIST: ASPI325T32 PO; HYDR-3498 PO; PANT40TA4 PO; TRAM50TA2 PO
--- NOTE | 2017-05-21 09:56 | RADRPT ---
PROCEDURE: XR LEFT HIP. CLINICAL INDICATION: Left hip pain TECHNIQUE: 3 views of the left hip were performed. COMPARISON: None. FINDINGS: The patient is immediately postoperative of the a bipolar hemiarthroplasty. The prosthesis is in go od position and alignment. No evidence for bone destructive change or acute fracture. IMPRESSION: 1. Appropriate appearance of the bipolar hemiarthroplasty. 2. The patient is immediately postop. RPTAT: XX .Adan Vargas MD, MD Date Time Electronically viewed and signed by .Adna Vargas MD, on 05/21/2017 09:56 .T/
--- NOTE | 2017-05-21 10:01 | PN ---
Date/Time of Note Date/Time of Note DATE: 05/21/17 TIME: 09:58 Outpatient Progress Note HPI Gail presents today for her first postoperative evaluation on her right hip. She is now 10 days status post right anterior total hip arthroplasty. She is doing well overall. She is having minimal discomfort and rarely uses tramadol for pain. She has been taking aspirin twice daily for DVT prophylaxis. She denies any fevers or chills. She is doing physical therapy with home health. She presents today for her first postoperative evaluation. Physical Exam On exam today, she is alert and oriented 4, and in no acute distress. Exam of the incision demonstrates it to be clean, dry, and intact. Ryne are in place. There is no erythema, warmth, pus, or drainage noted. She has no pain with passive range of motion of the right hip joint. There is no significant soft tissue swelling. Her leg lengths are equal. Compartments are soft. Homans sign is negative. She is neurovascularly intact distally. Imaging: X-rays of the right hip were obtained today and reviewed by me. They demonstrate the implants to be "good anatomic alignment and no fractures or dislocations identified Allergies Coded Allergies: No Known Allergies (Verified Allergy, Unknown, 05/09/17) Assessment/Plan Assessment: 10 days status post right anterior total hip arthroplasty Plan: The ryne removed today, and Steri-Strips were applied. She is to continuing physical therapy with home health. Additionally she is to continue aspirin 325 mg twice daily for DVT prophylaxis. She is to follow-up with Dr. Rosales at [facility] in 4 weeks. She is to call the office in the meantime if she has any concerns. Medications Home Meds Active Scripts Pantoprazole* (Pantoprazole*) 40 Mg Tablet., 40 MG PO BID@06,18 for 40 Days, # 40 Prov:LUCAS EDUARDO PA-C 05/10/17 Tramadol HCl (Tramadol HCl) 50 Mg Tablet, 50 MG PO Q6 for 30 Days, #60 TAB Prov:LUCAS EDUARDO PA-C 05/10/17 Hydrocodone Bit-Acetaminophen (Hydrocodone Bit-APAP) 5-325MG Tablet, 1 TAB PO Q4H Y for PAIN LEVEL 1-3 for 30 Days, #60 TAB Prov:LUCAS EDUARDO PA-C 05/10/17 Aspirin (Aspir-Rachel) 325 Mg Tablet., 325 MG PO BID for 40 Days, #80 Prov:LUCAS EDUARDO PA-C 05/10/17 LUCAS EDUARDO PA-C May 21, 2017 10:01
== END | disposition home or self-care (01) ==
LOC: HKI 09:37
PROVIDERS: ATTEND Orthopaedic Surgery
DX: Z47.1 Aftercare following joint replacement surgery (principal); Z96.641 Presence of right artificial hip joint
CPT/HCPCS: 73502